=== PATIENT | male | born 1945 | race Caucasian/White ===

== ENCOUNTER 2019-04-28 19:08 | Emergency (ER) | payer MEDICARE, OTHER ==
[~2019-04-28] VITALS: Ht 177.8 cm; Wt 61.7 kg
[2019-04-28 19:14] VITALS: Ht 177.8 cm; Wt 61.7 kg
[2019-04-28] MEDS ORDERED: SOD CHLORIDE 0.9% 100 ML ONE (22:40)
[2019-04-28] MEDS ORDERED: IOHEXOL 300MG/ML 150 ML BTL ONE (22:40)
[2019-04-28] MEDS ORDERED: SOD CHLORIDE 0.9% 1,000 ML IV STA (23:57)
[2019-04-29 05:30] VITALS: BP 123/79; PULSE 69; RESP 22
[2019-04-29] MEDS ORDERED: SOD CHLORIDE 0.9% 1,000 ML IV SCH (06:20)
[2019-04-29] MEDS ORDERED: NACL 0.9% 3 ML SYG IV SCH (06:30)
[2019-04-29] MEDS ORDERED: ACETAMINOPHEN 325 MG TAB PO PRN ×2 (06:30)
[2019-04-29] MEDS ORDERED: DOCUSATE SODIUM 100 MG CAP PO PRN (06:30)
[2019-04-29] MEDS ORDERED: ONDANSETRON 4 MG INJ IV PRN ×2 (06:30)
[2019-04-29] MEDS ORDERED: morphine 2 MG INJ IV PRN (06:30)
[2019-04-29] MEDS ORDERED: BISACODYL (EC) 5 MG TAB PO PRN (06:30)
== END 2019-04-29 08:21 | disposition home or self-care (01) ==
LOC: FTE 19:08 → CANBEDREQ 04-29 07:05 → E/R 04-29 08:21
DX: C41.1 Malignant neoplasm of mandible (principal)
CPT/HCPCS: 36415; 70491; 80048; 85025; 85651; 86140; 99285; J7030; Q9967